=== PATIENT | female | born 1990 | race Caucasian/White ===

== ENCOUNTER → 2023-06-27 19:18 | Outpatient (REF) | payer BC, SELFPAY | LOC: CLAB 19:18 | PROVIDERS: ATTENDING PHYSICIAN Obstetrics & Gynecology | DX: Z34.93 Encounter for supervision of normal pregnancy, unspecified, third trimester (principal) | CPT/HCPCS: 87070 ==

== ENCOUNTER 2023-07-23 00:02 | Inpatient (IN) | payer BC, SELFPAY ==
[2023-07-23 00:11] VITALS: BMI 36.3
[2023-07-23 01:46] LABS: % Basophils 0.2 % (0-2); % Eosinophils 0.9 % (0-6); % Immature Granulocytes 1.3 % (0-0.5); % Lymphocytes 21.9 % (20.5-51.1); % Neutrophils 70.7 % (42.2-75.2); Absolute Eosinophils 0.1 10^3/uL (0-0.7); Absolute Immature Granulocytes 0.1 10^3/uL (0-0.05); Absolute Lymphocytes 2.3 10^3/uL (1.2-3.4); Absolute Monocytes 0.5 10^3/uL (0.1-0.6); Absolute Neutrophils 7.3 10^3/uL (1.4-6.5); Hematocrit 31.1 % (37.0-47.0); Hemoglobin 10.7 g/dL (12.0-16.0); Mean Corp Hgb Conc. 34.4 g/dL (33.0-37.0); Mean Corpuscular Hgb 28.7 pg (27.0-31.0); Mean Corpuscular Volume 83.4 fL (81.0-99.0); Mean Platelet Volume 10.3 fL (7.4-10.4); Nucleated Red Blood Cells % 0 %; Platelet Count 291 10^3/uL (130-400); Red Blood Cell Count 3.73 10^6/uL (4.20-5.40); Red Cell Dist. Width 13.7 % (11.5-14.5); White Blood Cell Count 10.3 10^3/uL (4.8-10.8)
[2023-07-23] MEDS: LR 1000 IV (06:42)
[2023-07-23] MEDS: MORPHINE SULFATE 2 MG IV (07:49)
[2023-07-23] MEDS: PHENERGAN 50.5 MG IV (07:54)
[2023-07-23] MEDS: FENTANYL/BUPIVACAINE 100 EPIDURAL (09:08)
[2023-07-23] MEDS: SUBLIMAZE 100 MCG EPIDURAL (09:08)
[2023-07-23 12:20] VITALS: BP 107/69
[2023-07-23] MEDS: METHERGINE INJECTION 0.200000000000000011 MG IM (14:11)
[2023-07-23] MEDS: ZOLOFT 50 MG PO (16:14)
[2023-07-23] MEDS: MOTRIN 600 MG PO (19:58)
[2023-07-23] MEDS: TYLENOL 650 MG PO (19:58)
[2023-07-24] MEDS: MOTRIN 600 MG PO ×2 (03:12→15:16)
[2023-07-24] MEDS: TYLENOL 650 MG PO ×2 (03:12→15:17)
[2023-07-24 03:49] LABS: Hematocrit 30.6 % (37.0-47.0); Hemoglobin 9.9 g/dL (12.0-16.0)
[2023-07-24] MEDS: SENOKOT-S 1 TABLET PO (08:33)
[2023-07-24] MEDS: PRENATAL PLUS 1 TABLET PO (08:33)
[2023-07-24] MEDS: ZOLOFT 50 MG PO (08:33)
[2023-07-25] MEDS: MOTRIN 600 MG PO (03:14)
[2023-07-25] MEDS: TYLENOL 650 MG PO (03:15)
[2023-07-25] MEDS: PRENATAL PLUS 1 TABLET PO (07:45)
[2023-07-25] MEDS: SENOKOT-S 1 TABLET PO (07:45)
[2023-07-25] MEDS: FEOSOL 325 MG PO (07:45)
[2023-07-25] MEDS: ZOLOFT 50 MG PO (07:46)
[2023-07-26 15:00] LABS: Syphilis/T. pallidum Ab Reflex Negative (Negative)
== END 2023-07-25 11:49 | disposition home or self-care (01) | DRG 807 ==
LOC: LDRP 00:02
PROVIDERS: Obstetrics & Gynecology; ADMITTING PHYSICIAN Obstetrics & Gynecology; FAMILY PHYSICIAN Nurse Practitioner Family
PROC: 10E0XZZ Delivery of Products of Conception, External Approach (ICD-10-PCS; 2023-07-23)
PROC: 0HQ9XZZ Repair Perineum Skin, External Approach (ICD-10-PCS; 2023-07-23)
PROC: 10907ZC Drainage of Amniotic Fluid, Therapeutic from Products of Conception, Via Natural or Artificial Opening (ICD-10-PCS; 2023-07-23)
DX: O70.0 First degree perineal laceration during delivery (principal); Z37.0 Single live birth; O69.81X0 Labor and delivery complicated by cord around neck, without compression, not applicable or unspecified; O77.0 Labor and delivery complicated by meconium in amniotic fluid; Z3A.41 41 weeks gestation of pregnancy
CPT/HCPCS: 88307; 36415; 85014; 85018; 85025; 86780; 86850; 86900; 86901

== ENCOUNTER → 2024-03-15 11:50 | Outpatient (REF) | payer BC, SELFPAY ==
[2024-03-15 12:39] LABS: ALT (SGPT) 24 U/L (0-35); AST (SGOT) 26 U/L (14-36); Albumin 4.5 g/dl (3.5-5.0); Alkaline Phosphatase 96 U/L (38-126); Blood Urea Nitrogen 18 mg/dl (7-17); Calcium 9.4 mg/dl (8.4-10.2); Carbon Dioxide 28 mmol/L (22-30); Chloride 104 mmol/L (98-107); Glucose 89 mg/dl (70-99); HDL Cholesterol 75 mg/dl; Iron 87 ug/dl (37-170); LDL Cholesterol, Calculated 126 mg/dl; Potassium 4.5 mmol/L (3.5-5.1); Sodium 141 mmol/L (135-145); Total Bilirubin 0.4 mg/dl (0.2-1.3); Total Cholesterol 219 mg/dl (50-199); Total Protein 7.5 g/dl (6.3-8.2); Triglyceride 93 mg/dl (10-149); Very Low Density Lipoprotein 18 mg/dl (0-30); eGFR > 60.00
[2024-03-15 12:49] LABS: Percent Saturation 23 % (20-50); Total Iron Binding Capacity 377 ug/dl (265-497)
[2024-03-15 13:28] LABS: Glycohemoglobin (HgbA1c) 5.1 % (4.0-5.6)
[2024-03-17 07:52] LABS: Quantiferon Mitogen minus NIL 9.96 IU/mL; Quantiferon NIL 0.04 IU/mL; Quantiferon Plus TB1 minus NIL 0.01 IU/mL (<=0.34); Quantiferon Plus TB2 minus NIL 0.01 IU/mL (<=0.34); Quantiferon TB Gold Plus Negative (Negative)
== END ==
LOC: REG 11:50
PROVIDERS: ATTENDING PHYSICIAN Nurse Practitioner Family
DX: Z00.00 Encounter for general adult medical examination without abnormal findings (principal); Z11.1 Encounter for screening for respiratory tuberculosis
CPT/HCPCS: 36415; 80053; 80061; 83036; 83540; 83550; 84443; 86480

== ENCOUNTER 2024-06-14 18:31 | Emergency (ER) | payer BC, SELFPAY ==
[2024-06-14 18:36] VITALS: BP 135/82
[2024-06-14 20:03] VITALS: BMI 31.8
--- NOTE | 2024-06-14 20:31 | ED.GENMED ---
History of Present Illness
General
Chief Complaint: Musculo-Skeletal Complaint
Source: patient
Exam Limitations: none
Time Seen by Provider: 06/14/24 20:17
History of Present Illness
History of Present Illness:
See MDM
Past History
Past History
ED Past Medical History: None
ED Past Surgical History: None
Social History
Tobacco: Non-smoker
Alcohol: None
Phy Exam
Physical Exam
Physical Exam:
See MDM
Course
Orders/Labs/Results
Orders:
Orders
06/14/24 20:34
Fluid Culture with Gram Stain Urgent
MAYUR Source: Joint Fluid
Specimen Description:
Date Specimen was Collected: 06/14/24
Time Specimen was Collected: 20:32
06/14/24 20:41
Ibuprofen [Motrin] 600 mg PO NOW STA
Elbow, 3 View, Right [CR Elbow - Right Min 3 Views] Urgent
Comment:
Reason For Exam: R elbow pain
Vital Signs
Initial and Last Documented VS:
Initial Vital Signs
Temp Pulse Resp Pulse Ox
99.1 F 112 20 100
06/14/24 18:33 06/14/24 18:33 06/14/24 18:33 06/14/24 18:33
Last Documented Vital Signs
Temp Pulse Resp BP Pulse Ox
99.1 F 112 20 135/82 100
06/14/24 18:33 06/14/24 18:33 06/14/24 18:33 06/14/24 18:36 06/14/24 18:33
Procedures
Incision/Drainage/Joint Aspiration
Right Lateral Elbow:
Anethesia: other (None)
Preparation: cleaned with Betadine
Type of procedure: drain
Nature of site: other (Bursitis)
Description of abscess: less than 3cm
Loculations broken up: No
How much fluid was obtained?: small amount
Fluid description: clear
Treatment: bandaid applied
MDM/Problems Addressed
Differential Diagnosis Includes:
HPI and MDM Narrative:
33-year-old female presenting with right elbow pain and swelling. She went to urgent care to get it evaluated. They did blood work and she was found to have a white blood cell count of 14 so she was sent to the emergency department for evaluation.
On exam, patient has what appears to be a right elbow bursitis. Patient works as a speech therapist for early intervention. I question whether or not she is on the floor a lot or leaning on her elbow. She does acknowledge that she is. We
discussed this is likely overuse. There is seems mildly inflamed but no evidence of cellulitis. We discussed leaving it as is versus tapping it. Based on the history of fever yesterday, patient gave verbal consent for drainage.
Patient tolerated procedure well. Will send for Gram stain and culture
Physical exam
General: Well appearing and non-toxic
HEENT: protecting airway
Neck: appears supple
CV: No evidence of cyanosis
Resp: No accessory muscle use
Abd: Non-distended
Extremities: Right elbow bursitis. Distal extremity neurovascular intact. No skin changes
Neuro: alert
Psych: Normal affect
Skin: Intact
Problems Addressed including Acute and Chronic Conditions affecting care:
1. Right elbow bursitis
Acuity: acute
Prognosis: stable
Details: Given the fevers yesterday and the current leukocytosis, the bursa was tapped
Updates
There was not enough fluid for cell count. It will be sent for culture. Will start on Augmentin until the culture comes back
Differential Diagnosis (but not limited to): Noninfectious bursitis, infectious bursitis
Testing considered: Blood work
Drug therapy (if applicable): OTC meds, please see d/c instruction regarding Rx drugs
Amount and/or Complexity of Data Reviewed
Clinical info obtained from: Patient
External data reviewed: N/A
Labs I independently reviewed (but not limited to): N/A
Radiology: X-ray independently reviewed: Elbow x-ray negative for fracture
Pulse Ox: not hypoxic
EKG independently reviewed: N/A
Lining Maker: N/A
Critical Care: N/A
Risk of Complication:
Social Determinants of health: Good social support
Discussed with other providers: N/A
Escalation of Care includes Admit/Obs: After being observed in the Emergency Department, pt stable for discharge.
Occasional wrong word or 'sound a like' substitutions may have occurred due to the inherent limitations of voice recognition software. Read the chart carefully and recognize, using context, where substitutions have occurred.
*Critical Care Note
Total Time (30-74mins, 75-104mins- exclusive of procedures): Not Applicable
ED Attending Note
-
Portions of this chart may have been created with voice recognition software.� Occasional wrong word or��sound alike� substitutions may have occurred due to the inherent limitations of voice recognition software.
Discharge Plan
Departure
Patient Disposition: Home (Routine Discharge)
Date of Disposition: 06/14/24
Time of Disposition: 21:32
Patient with high blood pressure during this ER visit?: No
Discharge Problem:
Bursitis of right elbow
Instructions: Bursitis ED
Prescriptions:
New
amoxicillin-pot clavulanate 875-125 mg tablet
1 tab PO BID Qty: 14 0RF
No Action
Vitamin Tablet
1 tab PO DAILY
Zoloft
50 mg PO DAILY
acetaminophen 325 mg Tablet
650 mg PO Q4HPRN PRN (Reason: mild pain) Qty: 0 0RF
sennosides-docusate sodium [Stool Softener-Stimulant Laxat] 8.6-50 mg Tablet
1 tab PO DAILYPRN PRN (Reason: constipation) Qty: 0 0RF
ferrous sulfate [FeroSul] 325 mg (65 mg iron) Tablet
325 mg PO DAILY Qty: 0 0RF
ibuprofen 600 mg Tablet
600 mg PO Q6HPRN PRN (Reason: moderate pain/cramps) Qty: 0 0RF
Referrals:
Hiren Haddad CRNP [Family Provider] -
Stand Alone Forms: Return to Work
Activity Restrictions/Additional Instructions:
Please return for any worsening symptoms.
You may return at any time if you have further concerns.
Please follow up with your doctor at the first available appointment, preferably this week.
As we discussed, the fluid was sent to the lab for a culture. Please call the emergency department Tuesday morning to see if the culture came back positive. This will decide whether or not you need to continue the antibiotics. The phone number
for the emergency department is [phone].
Thank you for choosing [facility].
Interventions
Interventions:
*Risk Screen - Suicide Last Done: 06/14/24 18:36
*General Assessment Last Done: 06/14/24 18:36
*Neglect/Abuse Screening Last Done: 06/14/24 18:36
ED- Fall Risk Assessment Last Done: 06/14/24 20:04
*ED COVID-19 Vaccine History Last Done: 06/14/24 20:03
ED-Musculoskeletal Assessment Last Done: 06/14/24 20:04
Discharge Date and Time
Print Language: GUAMANIAN
[2024-06-14] MEDS: MOTRIN 600 MG PO (20:56)
[2024-06-14] MEDS: AUGMENTIN 875 MG/125 MG 1 TABLET PO (21:35)
== END 2024-06-14 21:57 | disposition home or self-care (01) ==
LOC: EMR 18:31
PROVIDERS: EMERGENCY PHYSICIAN Student in an Organized Health Care Education/Training Program; FAMILY PHYSICIAN Nurse Practitioner Family
DX: M70.31 Other bursitis of elbow, right elbow (principal); M25.521 Pain in right elbow; Z88.2 Allergy status to sulfonamides; Z91.018 Allergy to other foods
CPT/HCPCS: 20605; 99283; 73080; 87015; 87070; 87205